=== PATIENT | female | born 1965 | race African-American/Black ===

== ENCOUNTER 2024-04-23 04:14 | Inpatient (IN) | payer OTHER, MEDICAID ==
[~2024-04-23] VITALS: Ht 162.6 cm; Wt 81.6 kg
[2024-04-23] MEDS: SODIUM CHLORIDE 0.9% 1000ML BAG (SEPSIS BOLUS) IV ONE ×2 (05:24→05:26)
[2024-04-23] MEDS: PIPERACILLIN/TAZO 3.375G/50ML 50 ML IV ONE (05:32)
[2024-04-23 05:43] LABS: BASOPHILS % 0.4 % (0.0-2.0); EOSINOPHILS % 0.2 % (0.0-5.0); HEMATOCRIT. 45.6 % (36.0-48.0); HEMOGLOBIN. 14.7 g/dL (12.0-16.0); LYMPHOCYTES % 9.7 % (20.0-50.0); MEAN CORPUSCULAR HEMOGLOBIN 31.9 pg (28.0-32.0); MEAN CORPUSCULAR HGB CONC 32.4 g/dL (31.0-37.0); MEAN CORPUSCULAR VOLUME 98.4 fL (81.0-99.0); MEAN PLATELET VOLUME 9.6 fl (7.4-10.4); MONOCYTES % 6.6 % (2.0-8.0); NEUTROPHILS % 83.1 % (40.0-76.0); PLATELET 295 x1000/uL (130-400); RED BLOOD CELL COUNT 4.63 mill/uL (4.2-5.4); RED CELL DISTRIBUTION WIDTH 18.1 % (11.6-14.6); WHITE BLOOD COUNT 12.7 x1000/uL (4.5-11.0)
[2024-04-23 05:52] LABS: INR 1.2; PARTIAL THROMBOPLASTIN TIME 27.8 sec (23.4-31.0); PROTHROMBIN TIME 12.8 sec (9.6-11.0)
[2024-04-23 06:02] LABS: CHLORIDE 94 mEq/L (98-107); SODIUM 134 mEq/L (136-145)
[2024-04-23 06:03] LABS: CARBON DIOXIDE 32 mEq/L (21-32)
[2024-04-23 06:04] LABS: CALCIUM 9.9 mg/dL (8.7-10.4)
[2024-04-23 06:08] LABS: GLUCOSE 118 mg/dL (70-105)
[2024-04-23 06:09] LABS: TROPONIN I HIGH SENSITIVITY 26 ng/L (3.0-34); UREA NITROGEN BLOOD 21 mg/dL (9-23)
[2024-04-23 06:10] LABS: ALANINE AMINOTRANSFERASE < 7 IU/L (10-49); ALBUMIN 3.5 g/dL (3.2-4.8); ASPARTATE AMINOTRANSFERASE 13 IU/L (<34)
[2024-04-23 06:11] LABS: BILIRUBIN DIRECT 0.1 mg/dL (<=3.0); BILIRUBIN TOTAL 0.4 mg/dL (0.1-1.0); PROTEIN TOTAL 7.3 g/dL (6.0-8.3)
[2024-04-23] MEDS: VANCOMYCIN 1G PREMIX 200 ML IV ONE (06:19)
[2024-04-23 06:49] LABS: CREATININE 8.1 mg/dL (0.6-1.0); POTASSIUM 2.8 mEq/L (3.5-5.1)
[2024-04-23] MEDS: POTASSIUM CHLORIDE 20MEQ/PACKET PO ONE (06:57)
[2024-04-23 09:16] LABS: POTASSIUM 3.2 mEq/L (3.5-5.1)
[2024-04-23 09:17] LABS: CALCIUM 9.3 mg/dL (8.7-10.4)
[2024-04-23 09:39] LABS: CREATININE 7.8 mg/dL (0.6-1.0)
[2024-04-23] MEDS ORDERED: ONDANSETRON HCL 4MG/2ML INJ IV PRN (10:45)
[2024-04-23] MEDS ORDERED: DOCUSATE SODIUM 100MG CAPSULE PO PRN (10:45)
[2024-04-23] MEDS ORDERED: DEXTROSE 50% WATER 50ML SYRINGE IV PRN (10:45)
[2024-04-23] MEDS ORDERED: MAGNESIUM/ALUMINUM HYDROXIDE/SIMETHICONE 30ML UDC PO PRN (10:45)
[2024-04-23] MEDS ORDERED: IPRATROPIUM/ALBUTEROL 0.5-3(2.5)MG/3ML NEB HHN PRN (10:45)
[2024-04-23] MEDS: BLOOD SUGAR DIAGNOSTIC STRIP TEST SCH (11:45)
[2024-04-23] MEDS ORDERED: CEFTRIAXONE 1GM/50ML 50 ML IV SCH (12:00)
[2024-04-23] MEDS: INSULIN LISPRO 100 UNITS/ML SUBCUT SCH (12:15)
[2024-04-23 13:15] LABS: PHOSPHORUS 5.8 mg/dL (2.5-4.9)
[2024-04-23] MEDS ORDERED: METRONIDAZOLE 500 MG PREMIX 100 ML IV SCH (13:30)
[2024-04-23] MEDS ORDERED: PIPERACILLIN/TAZO 3.375G/50ML 50 ML IV SCH (14:00)
[2024-04-23] MEDS: POTASSIUM CHLORIDE 20MEQ TABLET SR PO NR (15:50)
[2024-04-23] MEDS: SODIUM CHLORIDE 0.9% 1,000 ML IV SCH (15:51)
[2024-04-23] MEDS: PIPERACILLIN/TAZO 3.375G/50ML IV SCH (15:51)
[2024-04-23 18:00] VITALS: BP 126/67; PULSE 78; RESP 17; TEMP 36.50292; O2SAT 98
[2024-04-23 18:15] VITALS: BP 122/67; PULSE 77; RESP 17; TEMP 36.50292; O2SAT 98
[2024-04-23 18:32] LABS: CREATINE KINASE MB FRACTION 2.2 ng/mL (0.5-3.6)
[2024-04-23] MEDS: MAGNESIUM 4 G PREMIX 100 ML IV NR (19:09)
[2024-04-23 20:00] VITALS: BP 110/66; PULSE 80; RESP 19; TEMP 36.61404; O2SAT 100
[2024-04-23 20:55] VITALS: BP 110/66; PULSE 80; RESP 19; TEMP 36.6404
[2024-04-23 22:14] LABS: BODY FLUID MONOCYTES 6 %; BODY FLUID RBC 832 /cu mm (0-2000); BODY FLUID WBC 615 /cu mm (0-200)
[2024-04-23] MEDS: METRONIDAZOLE 500 MG PREMIX 100 ML IV SCH (22:24)
[2024-04-24] VITALS (7 sets, daily range): BP systolic 97–145; BP diastolic 48–89; PULSE 69–89; RESP 18–20; TEMP 36.05844–36.6696; O2SAT 98–100
[2024-04-24 00:10] LABS: CREATINE KINASE MB FRACTION 1.4 ng/mL (0.5-3.6)
[2024-04-24] MEDS: ACETAMINOPHEN 325MG TABLET PO PRN (05:11)
[2024-04-24] MEDS: LACTOBACILLUS GG CAPSULE PO SCH (09:00)
[2024-04-24] MEDS ORDERED: LIDOCAINE HCL 1% 10 MG/ML 10ML VIAL ONE (12:09)
[2024-04-24] MEDS: PANTOPRAZOLE SODIUM 40 MG/VIAL IV SCH (13:47)
[2024-04-24] MEDS: CEFTRIAXONE 1GM/50ML 50 ML IV SCH (13:47)
[2024-04-24] MEDS: KETOROLAC 15MG/ML VIAL IV PRN (13:48)
== END 2024-04-24 15:45 | disposition short-term general hospital (02) | DRG 871 ==
LOC: ER 04:14 → 5WST 07:58 → EDBEDREQTM 08:00 → EDBEDREQ 08:00 → 7EST 17:47
PROVIDERS: ADMIT Preventive Medicine Clinical Informatics; ATTEND Preventive Medicine Clinical Informatics
PROC: 5A1D70Z Performance of Urinary Filtration, Intermittent, Less than 6 Hours Per Day (ICD-10-PCS; principal; 2024-04-23)
PROC: 02HV33Z Insertion of Infusion Device into Superior Vena Cava, Percutaneous Approach (ICD-10-PCS; 2024-04-24)
PROC: B548ZZA Ultrasonography of Superior Vena Cava, Guidance (ICD-10-PCS; 2024-04-24)
DX: A41.9 Sepsis, unspecified organism (principal); K65.0 Generalized (acute) peritonitis; N18.6 End stage renal disease; E87.1 Hypo-osmolality and hyponatremia; I12.0 Hypertensive chronic kidney disease with stage 5 chronic kidney disease or end stage renal disease; D64.9 Anemia, unspecified; E11.22 Type 2 diabetes mellitus with diabetic chronic kidney disease; E83.39 Other disorders of phosphorus metabolism; E83.42 Hypomagnesemia; E86.9 Volume depletion, unspecified; E87.6 Hypokalemia; I45.10 Unspecified right bundle-branch block; R65.20 Severe sepsis without septic shock; Z99.2 Dependence on renal dialysis
CPT/HCPCS: 36415; 36573; 71045; 74176; 80048; 80076; 82550; 82553; 82962; 83036; 83605; 83735; 83880; 84100; 84145; 84484; 85025; 86850; 86900; 90935; 90945; 93005; 99291; C1725; J0696; J1815; J1885; J2470; J2543; J3370; J3475; J3490; J7030